=== PATIENT | male | born 1980 | race Hispanic/Latino ===

== ENCOUNTER 2018-12-21 09:25 | Emergency (ER) | payer OTHER ==
--- OUTSIDE RECORDS SUMMARY | 2018-12-21 10:14 | XMS REPORT ---
:1980 [facility] [address] [place] [address] [address]. [address] [place] [address] Care Team Providers Name Role Phone Unavailable Unavailable Unavailable Problems This patient has no known problems. Allergies, Adverse Reactions, Alerts This patient has no known allergies or adverse reactions. Medications This patient has no known medications.
--- NOTE | 2018-12-21 10:40 | ER ---
Nurse's Notes [facility] Name: Andry Carlisle Age: 38 yrs Sex: Male : 1980 Arrival Date: 12/21/2018 Time: 09:27 Bed 15 Private MD: None, None; out of town, doctor Diagnosis: Influenza due to identified novel influenza A virus;Streptococcal pharyngitis Presentation: 12/21 09:42 Presenting complaint: Patient states: fever, cough, runny nose, body aches, mild iw scratchy throat since Wednesday. Transition of care: patient was not received from another setting of care. Onset of symptoms was December 18, 2018. Risk Assessment: Do you want to hurt yourself or someone else? Patient reports no desire to harm self or others. Initial Sepsis Screen: Does the patient meet any 2 criteria? No. Patient's initial sepsis screen is negative. Does the patient have a suspected source of infection? No. Patient's initial sepsis screen is negative. Care prior to arrival: None. 09:42 Method Of Arrival: Ambulatory iw 09:42 Acuity: CAMERON 4 iw Triage Assessment: 10:00 General: Appears in no apparent distress. uncomfortable, Behavior is calm, cooperative, hj appropriate for age. Pain: Complains of pain in throat. Historical: - Allergies: 09:43 No Known Allergies; iw - Home Meds: 09:43 None [Active]; iw - PMHx: 09:43 None; iw - PSHx: 09:43 abdominal aorta repair; iw - Immunization history:: Adult Immunizations not up to date. - Social history:: Smoking status: Patient/guardian denies using tobacco. - Ebola Screening: : Patient negative for fever greater than or equal to 101.5 degrees Fahrenheit, and additional compatible Ebola Virus Disease symptoms Patient denies exposure to infectious person Patient denies travel to an Ebola-affected area in the 21 days before illness onset No symptoms or risks identified at this time. Screenin:00 Abuse screen: Denies threats or abuse. Denies injuries from another. Nutritional hj screening: No deficits noted. Tuberculosis screening: No symptoms or risk factors identified. Fall Risk None identified. Assessment: 10:00 General: Appears in no apparent distress. uncomfortable, Behavior is calm, cooperative, hj appropriate for age. Pain: Complains of pain in throat. Vital Signs: 09:43 BP 133 / 80; Pulse 73; Resp 16; Temp 98.9(TE); Pulse Ox 98% on R/A; Weight 88.45 kg; iw Height 5 ft. 11 in. (180.34 cm); Pain 7; 09:43 Body Mass Index 27.20 (88.45 kg, 180.34 cm) ED Course: :27 Patient arrived in ED. dl4 09:28 None, None is Private Physician. dl4 09:28 out of town, doctor is Private Physician. dl4 09:39 Anthony Villa, RN is Primary Nurse. hj 09:43 Triage completed. iw :43 Arm band placed on. iw 10:00 Patient has correct armband on for positive identification. Bed in low position. Call hj light in reach. Side rails up X 1. Adult w/ patient. 10:04 Angel Luis Barahona NP is PHCP. pm1 10:04 Uche Mckeon MD is Attending Physician. pm1 10:13 Flu and/or RSV swab sent to lab. Strep swab sent to lab. mh5 10:13 Strep Sent. mh5 10:13 Flu Sent. 5 10:26 Ildefonso Dolan MD is Attending Physician. pm1 10:52 No provider procedures requiring assistance completed. Patient did not have IV access hj during this emergency room visit. Administered Medications: No medications were administered Outcome: 10:40 Discharge ordered by . pm1 10:52 Discharged to home ambulatory, with family. hj 10:52 Condition: stable 10:52 Discharge instructions given to patient, family, Instructed on discharge instructions, follow up and referral plans. medication usage, Demonstrated understanding of instructions, follow-up care, medications, Prescriptions given X 2. 10:53 Patient left the ED. hj Signatures: Monae Jordan RN RN Anthony Villa RN RN Angel Luis Barahona NP CLOSING SPECIALIST pm1 Dafne Syed 5 Amado Pemberton dl4
--- NOTE | 2018-12-21 10:40 | EDPHYS ---
Physician Documentation [facility] Name: Andry Carlisle Age: 38 yrs Sex: Male : 1980 Arrival Date: 12/21/2018 Time: 09:27 Bed 15 Private MD: None, None; out of town, doctor ED Physician Ildefonso Dolan HPI: 12/21 10:28 This 38 yrs old Male presents to ER via Ambulatory with complaints of Flu pm1 Symptoms. 10:28 The patient or guardian reports cough, flu symptoms, low-grade fever, myalgias. Onset: pm1 The symptoms/episode began/occurred 3 day(s) ago. Severity of symptoms: in the emergency department the symptoms are unchanged. Modifying factors: The symptoms are alleviated by nothing, the symptoms are aggravated by nothing. Associated signs and symptoms: Pertinent positives: fever, rhinorrhea, sore throat, Pertinent negatives: chest pain, diarrhea, ear ache, vomiting. The patient has not experienced similar symptoms in the past. The patient has not recently seen a physician. Historical: - Allergies: 09:43 No Known Allergies; iw - Home Meds: 09:43 None [Active]; iw - PMHx: 09:43 None; iw - PSHx: 09:43 abdominal aorta repair; iw - Immunization history:: Adult Immunizations not up to date. - Social history:: Smoking status: Patient/guardian denies using tobacco. - Ebola Screening: : Patient negative for fever greater than or equal to 101.5 degrees Fahrenheit, and additional compatible Ebola Virus Disease symptoms Patient denies exposure to infectious person Patient denies travel to an Ebola-affected area in the 21 days before illness onset No symptoms or risks identified at this time. ROS: 10:28 Eyes: Negative for injury, pain, redness, and discharge. pm1 10:28 Neck: Negative for injury, pain, and swelling, Cardiovascular: Negative for chest pain, palpitations, and edema. 10:28 Abdomen/GI: Negative for abdominal pain, nausea, vomiting, diarrhea, and constipation, Back: Negative for injury and pain, : Negative for injury, bleeding, discharge, and swelling, MS/Extremity: Negative for injury and deformity, Skin: Negative for injury, rash, and discoloration, Neuro: Negative for headache, weakness, numbness, tingling, and seizure. 10:28 Constitutional: Positive for body aches, fever, Negative for poor PO intake. 10:28 ENT: Positive for sore throat, Negative for drainage from ear(s), ear pain, difficulty swallowing, difficulty handling secretions, hoarseness. 10:28 Respiratory: Positive for cough, Negative for shortness of breath, sputum production, wheezing. Exam: 10:28 Constitutional: This is a well developed, well nourished patient who is awake, alert, pm1 and in no acute distress. Head/Face: Normocephalic, atraumatic. Eyes: Pupils equal round and reactive to light, extra-ocular motions intact. Lids and lashes normal. Conjunctiva and sclera are non-icteric and not injected. Cornea within normal limits. Periorbital areas with no swelling, redness, or edema. 10:28 ENT: Nares patent. No nasal discharge, no septal abnormalities noted. Tympanic membranes are normal and external auditory canals are clear. Oropharynx with no redness, swelling, or masses, exudates, or evidence of obstruction, uvula midline. Mucous membranes moist. Neck: Trachea midline, no thyromegaly or masses palpated, and no cervical lymphadenopathy. Supple, full range of motion without nuchal rigidity, or vertebral point tenderness. No Meningismus. Chest/axilla: Normal chest wall appearance and motion. Nontender with no deformity. No lesions are appreciated. Cardiovascular: Regular rate and rhythm with a normal S1 and S2. No gallops, murmurs, or rubs. Normal PMI, no JVD. No pulse deficits. Respiratory: Lungs have equal breath sounds bilaterally, clear to auscultation and percussion. No rales, rhonchi or wheezes noted. No increased work of breathing, no retractions or nasal flaring. Abdomen/GI: Soft, non-tender, with normal bowel sounds. No distension or tympany. No guarding or rebound. No evidence of tenderness throughout. Back: No spinal tenderness. No costovertebral tenderness. Full range of motion. Skin: Warm, dry with normal turgor. Normal color with no rashes, no lesions, and no evidence of cellulitis. MS/ Extremity: Pulses equal, no cyanosis. Neurovascular intact. Full, normal range of motion. 10:28 Neuro: Orientation: is normal, Motor: is normal, Sensation: is normal, no obvious gross deficits. Vital Signs: 09:43 BP 133 / 80; Pulse 73; Resp 16; Temp 98.9(TE); Pulse Ox 98% on R/A; Weight 88.45 kg; iw Height 5 ft. 11 in. (180.34 cm); Pain 7/10; 09:43 Body Mass Index 27.20 (88.45 kg, 180.34 cm) iw MDM: 10:14 Patient medically screened. pm1 10:29 Data reviewed: vital signs. Data interpreted: Pulse oximetry: on room air is 98 %. pm1 Interpretation: normal. 10:38 Counseling: I had a detailed discussion with the patient and/or guardian regarding: the pm1 historical points, exam findings, and any diagnostic results supporting the discharge/admit diagnosis, lab results, the need for outpatient follow up, to return to the emergency department if symptoms worsen or persist or if there are any questions or concerns that arise at home. 12/21 10:05 Order name: Flu; Complete Time: 10:38 pm1 12/21 10:05 Order name: Strep; Complete Time: 10:38 pm1 Administered Medications: No medications were administered Disposition: 11:05 Co-signature as Attending Physician, Ildefonso Dolan MD I agree with the assessment and kdr plan of care. Disposition: 12/21/18 10:40 Discharged to Home. Impression: Influenza due to identified novel influenza A virus, Streptococcal pharyngitis. - Condition is Stable. - Discharge Instructions: Influenza, Adult, Strep Throat. - Prescriptions for Amoxicillin 500 mg Oral Capsule - take 1 capsule by ORAL route every 8 hours for 10 days; 30 tablet. Tamiflu 75 mg Oral Capsule - take 1 tablet by ORAL route every 12 hours for 5 days; 10 tablet. - Medication Reconciliation Form, Thank You Letter, Antibiotic Education form. - Follow up: Emergency Department; When: As needed; Reason: Worsening of condition. Follow up: Private Physician; When: 2 - 3 days; Reason: Recheck today's complaints, Continuance of care, Re-evaluation by your physician. - Problem is new. - Symptoms have improved. Signatures: Dispatcher [employer] EDIldefonso Alcocer MD MD [facility] Monae Jordan RN RN Anthony Villa RN RN Marinas, Angel Luis, WILDERNESS GUIDE WILDERNESS GUIDE pm1 Corrections: (The following items were deleted from the chart) 10:53 10:40 12/21/2018 10:40 Discharged to Home. Impression: Influenza due to identified hj novel influenza A virus; Streptococcal pharyngitis. Condition is Stable. Forms are Medication Reconciliation Form, Thank You Letter, Antibiotic Education, Prescription Opioid Use. Follow up: Emergency Department; When: As needed; Reason: Worsening of condition. Follow up: Private Physician; When: 2 - 3 days; Reason: Recheck today's complaints, Continuance of care, Re-evaluation by your physician. Problem is new. Symptoms have improved. pm1
== END 2018-12-21 10:53 | disposition home or self-care (01) ==
LOC: ER 09:25
DX: J10.1 Influenza due to other identified influenza virus with other respiratory manifestations (principal); J02.0 Streptococcal pharyngitis
CPT/HCPCS: 87081; 87804; 99283

== ENCOUNTER 2019-06-11 22:04 | Inpatient (IN) | payer OTHER ==
[2019-06-11] MEDS ORDERED: MORPHINE 4 MG/ML SYR ONE (22:52)
[2019-06-11] MEDS ORDERED: ONDANSETRON 4 MG/2 ML VIAL ONE (22:52)
[2019-06-11] MEDS ORDERED: NA CHLORIDE 0.9% 1,000 ML ONE (22:52)
[2019-06-11 23:07] LABS: Basophils % 0.5 % (0-1.3); Hematocrit 45.5 % (39.6-49.0); Lymphocytes % 10.1 % (15.3-44.8); MPV 10.4 fL (7.6-11.3); RBC Red Blood Cell Count 5.27 M/uL (4.33-5.43)
[2019-06-11 23:17] LABS: Urine Blood NEGATIVE (NEG); Urine Glucose NEGATIVE (NEG); Urine Protein NEGATIVE (NEG)
[2019-06-11] MEDS ORDERED: PROMETHAZINE 25 MG/ML VIAL ONE (23:43)
[2019-06-12] MEDS ORDERED: MORPHINE 4 MG/ML SYR ONE (00:02)
[2019-06-12 00:51] LABS: Albumin 4.2 g/dL (3.4-5.0); Bilirubin Direct 0.2 mg/dL (0-0.2); Bilirubin Total 1.1 mg/dL (0.2-1.0); Potassium 3.8 mmol/L (3.5-5.1); Protein, Total 7.1 g/dL (6.4-8.2)
--- NOTE | 2019-06-12 01:27 | EDPHYS ---
Physician Documentation [facility] Name: Andry Carlisle Age: 39 yrs Sex: Male : 1980 Arrival Date: 06/11/2019 Time: 22:06 Bed 19 Private MD: ED Physician Jaciel Rodriguez HPI: 06/11 22:36 This 39 yrs old Male presents to ER via Ambulatory with complaints of pm1 Abdominal Pain. 22:36 The patient presents with abdominal pain right lower quadrant. Onset: The pm1 symptoms/episode began/occurred this morning. The symptoms do not radiate. Associated signs and symptoms: Pertinent positives: nausea, Pertinent negatives: chest pain, constipation, diarrhea, dysuria, fever, shortness of breath. The symptoms are described as waxing/waning. Modifying factors: The symptoms are alleviated by nothing, the symptoms are aggravated by nothing. Severity of pain: in the emergency department the pain is actually worse. The patient has not experienced similar symptoms in the past. The patient has not recently seen a physician, the patient's primary care provider is Dr. Armenta. Historical: - Allergies: 22:22 No Known Allergies; ea - Home Meds: 22:22 None [Active]; ea - PMHx: 22:22 fatty liver; ea - PSHx: 22:22 abdominal aorta repair; Cholecystectomy; ea - Immunization history:: Adult Immunizations up to date. - Social history:: Smoking status: Patient/guardian denies using tobacco. - Ebola Screening: : No symptoms or risks identified at this time. ROS: 22:36 Constitutional: Negative for fever, chills, and weight loss, Eyes: Negative for injury, pm1 pain, redness, and discharge, ENT: Negative for injury, pain, and discharge, Neck: Negative for injury, pain, and swelling, Cardiovascular: Negative for chest pain, palpitations, and edema, Respiratory: Negative for shortness of breath, cough, wheezing, and pleuritic chest pain, Back: Negative for injury and pain, MS/Extremity: Negative for injury and deformity, Skin: Negative for injury, rash, and discoloration, Neuro: Negative for headache, weakness, numbness, tingling, and seizure. 22:36 Abdomen/GI: Positive for abdominal pain, nausea, of the right lower quadrant, Negative for vomiting, diarrhea. Exam: 22:36 Constitutional: This is a well developed, well nourished patient who is awake, alert, pm1 and in no acute distress. Head/Face: Normocephalic, atraumatic. Eyes: Pupils equal round and reactive to light, extra-ocular motions intact. Lids and lashes normal. Conjunctiva and sclera are non-icteric and not injected. Cornea within normal limits. Periorbital areas with no swelling, redness, or edema. ENT: Nares patent. No nasal discharge, no septal abnormalities noted. Tympanic membranes are normal and external auditory canals are clear. Oropharynx with no redness, swelling, or masses, exudates, or evidence of obstruction, uvula midline. Mucous membranes moist. Neck: Trachea midline, no thyromegaly or masses palpated, and no cervical lymphadenopathy. Supple, full range of motion without nuchal rigidity, or vertebral point tenderness. No Meningismus. Chest/axilla: Normal chest wall appearance and motion. Nontender with no deformity. No lesions are appreciated. Cardiovascular: Regular rate and rhythm with a normal S1 and S2. No gallops, murmurs, or rubs. Normal PMI, no JVD. No pulse deficits. Respiratory: Lungs have equal breath sounds bilaterally, clear to auscultation and percussion. No rales, rhonchi or wheezes noted. No increased work of breathing, no retractions or nasal flaring. 22:36 Back: No spinal tenderness. No costovertebral tenderness. Full range of motion. Skin: Warm, dry with normal turgor. Normal color with no rashes, no lesions, and no evidence of cellulitis. MS/ Extremity: Pulses equal, no cyanosis. Neurovascular intact. Full, normal range of motion. 22:36 Abdomen/GI: Inspection: abdomen appears normal, Bowel sounds: normal, Palpation: soft, mild abdominal tenderness, in the right lower quadrant, mass, is not appreciated, rebound tenderness, is not appreciated. 22:36 Neuro: Orientation: is normal, Motor: is normal, moves all fours, Sensation: is normal, no obvious gross deficits. Vital Signs: 22:22 BP 139 / 94; Pulse 59; Resp 18; Temp 98.6; Pulse Ox 97% on R/A; Weight 81.65 kg; Height ea 5 ft. 10 in. (177.80 cm); Pain 7/10; 23:30 BP 149 / 80; Pulse 82; Resp 18; Pulse Ox 97% on R/A; lp1 06/12 00:30 BP 150 / 86; Pulse 78; Resp 18; Pulse Ox 95% on R/A; lp1 02:06 BP 142 / 81; Pulse 62; Resp 18; Pulse Ox 98% on R/A; lp1 02:55 BP 147 / 84; Pulse 70; Resp 16; Temp 98.1(O); Pulse Ox 97% on R/A; jb4 06/11 22:22 Body Mass Index 25.83 (81.65 kg, 177.80 cm) ea MDM: 06/11 22:26 Patient medically screened. pm1 06/12 01:19 Data reviewed: vital signs. Data interpreted: Pulse oximetry: on room air is 95 %. pm1 Interpretation: normal. Counseling: I had a detailed discussion with the patient and/or guardian regarding: the historical points, exam findings, and any diagnostic results supporting the discharge/admit diagnosis, lab results, radiology results, the need for further work-up and treatment in the hospital. 01:35 Physician consultation: Anthony Syed MD was called at 01:35, was contacted at 01:35, pm1 regarding admission, consult, patient's condition, would like admission per Dr. Jacob Messina DO NPO, IV fluids. 06/11 22:26 Order name: Basic Metabolic Panel; Complete Time: 00:52 pm06/11 22:26 Order name: CBC with Diff; Complete Time: 23:35 pm06/11 22:26 Order name: Creatinine for Radiology pm06/11 22:26 Order name: Hepatic Function; Complete Time: 00:52 pm06/11 22:26 Order name: Lipase; Complete Time: 00:52 pm06/11 23:03 Order name: Urine Dipstick--Ancillary (enter results); Complete Time: 23:35 2 06/11 22:26 Order name: IV Saline Lock; Complete Time: 23:03 pm06/11 22:37 Order name: CT Abd/Pelvis - IV Contrast Only pm1 06/11 22:26 Order name: Labs collected and sent; Complete Time: 23:03 pm06/11 22:37 Order name: NPO; Complete Time: 22:50 pm1 06/11 22:37 Order name: Urine Dipstick-Ancillary (obtain specimen); Complete Time: 23:03 pm1 Administered Medications: 06/11 23:02 Drug: morphine 4 mg Route: IVP; Site: right antecubital; lp1 23:48 Follow up: Response: Pain is unchanged, physician notified lp1 23:02 Drug: Zofran 4 mg Route: IVP; Site: right antecubital; lp1 23:47 Follow up: Response: No adverse reaction; Nausea unchanged lp1 23:02 Drug: NS 0.9% 1000 ml Route: IV; Rate: 1000 ml; Site: right antecubital; lp1 06/12 00:10 Follow up: IV Status: Completed infusion; IV Intake: 1000ml lp06/11 23:47 Drug: Phenergan 12.5 mg Route: IVP; Site: right antecubital; lp1 06/12 01:15 Follow up: Response: Nausea is decreased lp1 00:10 Drug: morphine 4 mg {Note: RASS 0.} Route: IVP; Site: right antecubital; lp1 01:15 Follow up: Response: Pain is decreased; RASS: Alert and Calm (0) lp1 01:45 Drug: NS 0.9% 1000 ml Route: IV; Rate: 125 ml/hr; Site: right antecubital; 1 03:03 Follow up: IV Status: Infusion continued upon admission lp1 Disposition: 03:27 Co-signature as Attending Physician, Jaciel Rodriguez MD. pk Disposition: 06/12/19 01:25 Hospitalization ordered by Jacob Messina for Inpatient Admission. Preliminary diagnosis is Other intestinal obstruction - small bowel obstruction. - Bed requested for Telemetry/MedSurg (Inpatient). - Status is Inpatient Admission. wh - Condition is Stable. - Problem is new. - Symptoms have improved. UTI on Admission? No Signatures: Dispatcher [employer] EDMS Jaciel Rodriguez MD MD pk Jannie Pate RN RN lp1 Diane Funk RN RN Angel Luis Barahona, SUPERVISOR HAND SILVERING SUPERVISOR HAND SILVERING pm1 Tisha Lopez RN RN ea Habalo, Winsy Corrections: (The following items were deleted from the chart) 02:53 01:25 Hospitalization Ordered by Jacob eMssina DO for Inpatient Admission. Preliminary cg diagnosis is Other intestinal obstruction - small bowel obstruction. Bed requested for Telemetry/MedSurg (Inpatient). Status is Inpatient Admission. Condition is Stable. Problem is new. Symptoms have improved. UTI on Admission? No. pm1 03:27 02:53 06/12/2019 01:25 Hospitalization Ordered by Jacob Messina DO for Inpatient Admission. Preliminary diagnosis is Other intestinal obstruction - small bowel obstruction. Bed requested for Telemetry/MedSurg (Inpatient). Status is Inpatient Admission. Condition is Stable. Problem is new. Symptoms have improved. UTI on Admission? No. cg
--- NOTE | 2019-06-12 01:27 | ER ---
Nurse's Notes [facility] Name: Andry Carlisle Age: 39 yrs Sex: Male : 1980 Arrival Date: 06/11/2019 Time: 22:06 Bed 19 Private MD: Diagnosis: Other intestinal obstruction-small bowel obstruction Presentation: 06/11 22:18 Presenting complaint: Patient states: Reports this AM he started having right lower ea quadrant pain that comes and goes. Pt reports he has been feeling nauseous. Denies vomiting or diarrhea. States he was only able to eat breakfast this AM. Transition of care: patient was not received from another setting of care. Onset of symptoms was June 11, 2019. Risk Assessment: Do you want to hurt yourself or someone else? Patient reports no desire to harm self or others. Initial Sepsis Screen: Does the patient meet any 2 criteria? No. Patient's initial sepsis screen is negative. Does the patient have a suspected source of infection? No. Patient's initial sepsis screen is negative. Care prior to arrival: None. 22:18 Method Of Arrival: Ambulatory ea 22:18 Acuity: CAMERON 3 ea Triage Assessment: 22:22 General: Appears uncomfortable, Behavior is calm, cooperative, appropriate for age. ea Pain: Complains of pain in right lower quadrant Pain does not radiate. Pain currently is 7 out of 10 on a pain scale. Is intermittent. Neuro: Level of Consciousness is awake, alert, obeys commands, Oriented to person, place, time, situation. Respiratory: Airway is patent Respiratory effort is even, unlabored, Respiratory pattern is regular, symmetrical. GI: Abdomen is non-distended, Abd is soft and non tender X 4 quads. Reports nausea. Historical: - Allergies: 22:22 No Known Allergies; ea - Home Meds: 22:22 None [Active]; ea - PMHx: 22:22 fatty liver; ea - PSHx: 22:22 abdominal aorta repair; Cholecystectomy; ea - Immunization history:: Adult Immunizations up to date. - Social history:: Smoking status: Patient/guardian denies using tobacco. - Ebola Screening: : No symptoms or risks identified at this time. Screenin:21 Abuse screen: Denies threats or abuse. Nutritional screening: No deficits noted. ea Tuberculosis screening: No symptoms or risk factors identified. Fall Risk None identified. Assessment: 22:30 General: Appears in no apparent distress. Behavior is appropriate for age. Pain: lp1 Complains of pain in right lower quadrant Pain currently is 6 out of 10 on a pain scale. Neuro: Level of Consciousness is awake, alert, obeys commands, Oriented to person, place, time, situation. Cardiovascular: Patient's skin is warm and dry. Respiratory: Respiratory effort is even, unlabored. GI: Abdomen is non-distended, Bowel sounds present X 4 quads. Reports lower abdominal pain, Patient currently denies nausea, vomiting. : No signs and/or symptoms were reported regarding the genitourinary system. EENT: No signs and/or symptoms were reported regarding the EENT system. Derm: Skin is pink, warm \T\ dry. Musculoskeletal: No deficits noted. 23:30 Reassessment: Provider notified. GI: Pt is actively vomiting brown liquid, undigested lp1 food, about 700 ml. 06/12 00:00 Reassessment: Patient noted to be in pain. Pain: Complains of pain in right lower lp1 quadrant Noted to be grimacing, guarding, quiet/stoic. 00:30 Reassessment: Patient and/or family updated on plan of care and expected duration. Pain lp1 level reassessed. Patient states some relief of nausea and pain at this time. 01:02 Reassessment: Patient returned from CT at time. lp1 02:05 Reassessment: Patient and/or family updated on plan of care and expected duration. Pain lp1 level reassessed. Patient aware of pending admission, at bedside Patient states feeling better. 02:20 Reassessment: Hospitalist at bedside to discuss plan of care with patient and . lp1 03:26 Reassessment: Patient appears in no apparent distress at this time. Patient and/or wh family updated on plan of care and expected duration. Pain level reassessed. Patient is alert, oriented x 3, equal unlabored respirations, skin warm/dry/pink. Patient states feeling better. Vital Signs: 06/11 22:22 BP 139 / 94; Pulse 59; Resp 18; Temp 98.6; Pulse Ox 97% on R/A; Weight 81.65 kg; Height ea 5 ft. 10 in. (177.80 cm); Pain 7/10; 23:30 BP 149 / 80; Pulse 82; Resp 18; Pulse Ox 97% on R/A; lp1 06/12 00:30 BP 150 / 86; Pulse 78; Resp 18; Pulse Ox 95% on R/A; lp1 02:06 BP 142 / 81; Pulse 62; Resp 18; Pulse Ox 98% on R/A; lp1 02:55 BP 147 / 84; Pulse 70; Resp 16; Temp 98.1(O); Pulse Ox 97% on R/A; jb4 06/11 22:22 Body Mass Index 25.83 (81.65 kg, 177.80 cm) ea ED Course: 06/11 22:06 Patient arrived in ED. es 22:20 Triage completed. ea 22:20 Patient has correct armband on for positive identification. Bed in low position. Call ea light in reach. Side rails up X2. 22:20 Arm band placed on right wrist. Patient placed in an exam room, on a stretcher, on ea pulse oximetry. 22:24 Jannie Pate, NEIL is Primary Nurse. lp1 22:25 Angel Luis Barahona NP is PHCP. pm1 22:25 Jaciel Rodriguez MD is Attending Physician. pm1 23:06 No provider procedures requiring assistance completed. lp1 23:31 Initial lab(s) drawn, by me, sent to lab. Inserted saline lock: 20 gauge in right cm6 antecubital area, using aseptic technique. 06/12 00:05 Lab(s) recollected, by me, sent to lab. lp1 00:12 Radiology exam delayed due to lab results not completed at this time. (BUN/Creatinine). kw1 00:29 Radiology exam delayed due to lab results not completed at this time. (BUN/Creatinine). kw1 01:05 CT Abd/Pelvis - IV Contrast Only In Process Unspecified. EDMS 01:25 Jacob Messina DO is Hospitalizing Provider. pm1 01:28 Patient admitted, IV remains in place. lp1 Administered Medications: 06/11 23:02 Drug: morphine 4 mg Route: IVP; Site: right antecubital; lp1 23:48 Follow up: Response: Pain is unchanged, physician notified lp1 23:02 Drug: Zofran 4 mg Route: IVP; Site: right antecubital; lp1 23:47 Follow up: Response: No adverse reaction; Nausea unchanged lp1 23:02 Drug: NS 0.9% 1000 ml Route: IV; Rate: 1000 ml; Site: right antecubital; lp1 06/12 00:10 Follow up: IV Status: Completed infusion; IV Intake: 1000ml lp1 06/11 23:47 Drug: Phenergan 12.5 mg Route: IVP; Site: right antecubital; lp1 06/12 01:15 Follow up: Response: Nausea is decreased lp1 00:10 Drug: morphine 4 mg {Note: RASS 0.} Route: IVP; Site: right antecubital; lp1 01:15 Follow up: Response: Pain is decreased; RASS: Alert and Calm (0) lp1 01:45 Drug: NS 0.9% 1000 ml Route: IV; Rate: 125 ml/hr; Site: right antecubital; 1 03:03 Follow up: IV Status: Infusion continued upon admission lp1 Intake: 00:10 IV: 1000ml; Total: 1000ml. [facility] Outcome: 01:25 Decision to Hospitalize by Provider. pm1 01:28 Condition: stable lp1 01:28 Instructed on the need for admit. 03:02 Admitted to Med/surg accompanied by nurse, family with patient, via wheelchair, room lp1 206, with chart, Report called to NEIL Giles 03:27 Patient left the ED. Signatures: Dispatcher [employer] EDMaría Elena Rosario Laura, RN RN lp1 Angel Luis Barahona, CAMERON VICE PRESIDENT EDUCATION pm1 Macario Bolton RN RN jb4 Tisha Lopez RN RN ea [place], Winsy wh Wilhelm, Kimberly [facility] Darling Crowe 6
[2019-06-12] MEDS ORDERED: NA CHLORIDE 0.9% 1,000 ML ONE (01:42)
--- NOTE | 2019-06-12 02:29 | P.HP ---
Certification for Inpatient Patient admitted to: Inpatient With expected LOS: >2 Midnights Patient will require the following post-hospital care: None Practitioner: I am a practitioner with admitting privileges, knowledge of patient current condition, hospital course, and medical plan of care. Services: Services provided to patient in accordance with Admission requirements found in Title 42 Section 412.3 of the Code of Federal Regulations Patient History Date of Service: 06/12/19 Reason for admission: Abdominal pain History of Present Illness: 39-year-old man presented to the emergency department with a complaint of abdominal pain of onset yesterday evening. Pain is described as colicky and intermittent, associated with vomiting. Patient vomited twice. He stated last bowel movement was yesterday in the evening. He denied any fever or diarrhea or constipation. CT abdomen and pelvis done in the ED reports high-grade small-bowel obstruction with transition point at the level of the aortic bifurcation. Of note, patient is status post aortic repair and cholecystectomy. He had no pain during my assessment in the ED and has not vomited since arrival to the ED. Patient is admitted for further management of small bowel obstruction. Allergies No Known Drug Allergies Allergy (Verified 06/12/19 04:23) Unknown Home Medications: NK [No Home Meds] 06/12/19 - Past Medical/Surgical History Past Medical History: Patient denies medical history -: Cholecystectomy -: Abdominal aorta repair - Family History Mother -: Cancer (Breast) Father Notes: no known medical condition - Social History Smoking Status: Never smoker Alcohol use: No CD- Drugs: No Place of Residence: Home Review of Systems Other: General: No fever, no malaise, no unintentional weight loss. Eyes: No eye discharge, Respiratory: No cough, no shortness of breath. CVS: No chest pain, no palpitation, no lightheadedness. GI: No constipation, no diarrhea. Genitourinary: No dysuria, no urinary frequency, no incontinence, no hematuria. Musculoskeletal: No joint pains, or joint swelling, no gait instability. Neurology: No headache, no asymmetric weakness, no problem with swallowing. Except as documented, all other systems reviewed and negative. Physical Examination - Physical Exam General: Alert, In no apparent distress, Oriented x3 HEENT: Atraumatic, Normocephalic, PERRLA, Mucous membr. moist/pink Neck: Supple, 2+ carotid pulse no bruit, JVD not distended Respiratory: Clear to auscultation bilaterally, Normal air movement Cardiovascular: No edema, Normal pulses, Regular rate/rhythm, Normal S1 S2, No murmurs Capillary refill: <2 Seconds Gastrointestinal: Soft and benign, Non-distended, No tenderness, Hyperactive Musculoskeletal: No clubbing, No swelling, No erythema Integumentary: No rashes, No breakdown, No erythema Neurological: Normal strength at 5/5 x4 extr, Cranial nerves 3-12 intact, Normal affect Lymphatics: No axilla or inguinal lymphadenopathy - Studies Laboratory Data (last 24 hrs) 06/12/19 00:05: Creatinine 1.04 06/12/19 00:05: Sodium 141, Potassium 3.8, BUN 15, Creatinine 1.05, Glucose 132 H, Total Bilirubin 1.1 H, AST 51 H, ALT 36, Alkaline Phosphatase 90, Lipase 65 L 06/11/19 22:53: WBC 10.3, Hgb 15.0, Hct 45.5, Plt Count 215 Assessment and Plan - Problems (Diagnosis) (1) Small bowel obstruction due to adhesions Current Visit: Yes Status: Acute - Plan Admit to med surge Supportive measures-IV normal saline, IV morphine p.r.n. for pain. NG-tube as needed for decompression Optimize electrolytes General surgery consult- Dr. Syed informed. - Advance Directives Does patient have a Living Will: No Does patient have a Durable POA for Healthcare: No - Code Status/Comfort Care Code Status: Full Code
[2019-06-12] MEDS ORDERED: ONDANSETRON 4 MG/2 ML VIAL IV PRN (02:44)
[2019-06-12] MEDS ORDERED: MORPHINE 2 MG/ML SYR IV PRN (02:48)
[2019-06-12] MEDS: NA CHLORIDE 0.9% 1,000 ML IV SCH ×3 (03:00→23:55)
[2019-06-12 04:55] LABS: Urine Appearance CLEAR; Urine Bilirubin NEGATIVE (NEG); Urine Blood NEGATIVE (NEG); Urine Color YELLOW; Urine Glucose NEGATIVE (NEG); Urine Protein NEGATIVE (NEG); Urine Specific Gravity >=1.030 (1.005-1.030)
[2019-06-12 04:56] LABS: Urine Microscopic Reflex NO UMIC
--- NOTE | 2019-06-12 09:24 | RAD REPORT ---
EXAM DESCRIPTION: Abdomen Pelvis W Contrast CLINICAL HISTORY: 39 years Male RLQ PAIN TECHNIQUE: Contiguous axial images obtained through the abdomen and pelvis following intravenous con trast administration. Coronal and sagittal reformatted images provided. This CT exam was performed according to our departmental dose-optimization program, which includes on e or more of the following dose reduction techniques: automated exposure control, adjustment of the m A and/or kV according to patient size, and/or use of iterative reconstruction technique. COMPARISON: No prior exams provided for comparison. FINDINGS: There is a high-grade mid small bowel obstruction with a likely transition point anterior to the aortic bifurcation, where there are some surgical clips. There is no pneumatosis, free intrape ritoneal air, or abscess. There is trace free fluid in the pelvis. The appendix is not identified and may be surgically absent. No inflammatory changes in its expected location. No colonic inflammation or obstruction. Prior cholecystectomy likely accounts for mild biliary prominence. Subcentimeter focus of low attenuation in the dome of the liver nonspecific but likely benign. The lung bases, pancreas, spleen, adrenal glands, kidneys, urinary bladder, and osseous structures ar e normal. There is no abdominal aortic aneurysm or acute retroperitoneal hemorrhage. IMPRESSION: High-grade mid small bowel obstruction with a likely transition point anterior to the ao rtic bifurcation, where there are some surgical clips. No evidence of bowel ischemia or perforation. No other acute findings in the abdomen or pelvis. THIS REPORT CONTAINS FINDINGS THAT MAY BE CRITICAL TO PATIENT CARE: The findings were verbally discu ssed via telephone conference with Dr. Barahona by Dr. Fallon Gibson on 06/12/2019 1:18 AM CDT .The resul ts were acknowledged and understood. Electronically signed by: Fallon Gibson MD 06/12/2019 1:20 AM CDT Due to temporary technical issues with the PACS/Fluency reporting system, reports are being signed by the in house radiologist as a courtesy to ensure prompt reporting. The interpreting radiologist is f ully responsible for the content of the report.
--- NOTE | 2019-06-12 11:50 | PN ---
Date of Progress Note: 06/12/2019 Subjective: Patient seen and examined. Chart reviewed and case discussed with RN and Dr. Syed. Patient is still having some pain. Has not thrown up since last night. Medications: List reviewed. Physical Examination: Vital Signs: Temperature 97.3, heart rate 54, blood pressure 117/69, respirations 16, O2 98% on room air. General: Awake, alert, oriented x3. Some mild distress. CV: S1, S2. No murmurs. Respiratory: Moving air well bilaterally. No wheezing. Gastrointestinal: Abdomen is soft, mildly distended. No bowel sounds. Tenderness to palpation. Extremities: No clubbing, cyanosis, or edema. Neurologic: Nonfocal. Laboratory Data: Creatinine 1.04. WBC 10.3, H and H 15 and 45.5. Assessment And Plan: A 39-year-old male with: 1.Small bowel obstruction due to adhesions. 2.Status post abdominal aortic repair. 3.Hyperglycemia, likely acute phase reactant. 4.Neutrophilia. 5.Deep venous thrombosis prophylaxis. SCDs. Plan: Serial abdominal x-rays. Follow up with Dr. Syed's recommendations. Conservative treatme nt for now. If fails treatment in next 48 hours, we will consider surgery. Keep n.p.o. Continue with IV fluids. Adjust pain medications as necessary. Encourage ambulation. /DON Voice ID: [id number] Report ID: [id number]
--- NOTE | 2019-06-12 17:05 | CON ---
Date of Consultation: 06/12/2019 Diagnosis: Small bowel obstruction. History Of Present Illness: This is the case of a 39-year-old patient, comes to us with bowel obstru ction. Etiology of that is unknown. He was eating before that some mushrooms. He stated complicate d abdominal surgery in 2017, where he was going for gallbladder surgery, but they end up having a com plication with the aorta that required midline incision to repair. Since then, he has been having no rmal life until he has this issue. He denies any dysuria, hematuria, hematochezia, or melena. Denie s any recent traveling out of the country. Denies any family members sick at home. Past Surgical History: As above including emergent laparotomy, repair of the aorta, although we do n ot have the details of that. Has a complication from my [facility]. Allergies: NONE. Social History: He does not smoke and does not drink alcohol. Medications: None. Family History: Noncontributory. Review of Systems: Ten-points otherwise unremarkable. Physical Examination: General: Patient is awake and alert. HEENT: Pupils are equal and reactive, anicteric. Neck: Supple. Chest: Clear. Abdomen: Soft and depressible. Mild tenderness. No guarding or rebound. Rectal: Deferred. Extremities: Good capillary refill. Laboratory Data: Blood work shows WBC count 10.3, with hemoglobin of 15.0. CAT scan of abdomen and pelvis shows small bowel obstruction. Assessment: This is a 39-year-old patient with small bowel obstruction. Patient has a previous comp licated surgeries. We suspect adhesions might be contributing to this. Today, he feels better. He is starting to move. He has not passed any gas yet or any bowel movement. He understands the option s of laparotomy, possible resection, possible ostomy with benefits, alternatives, and risks fully exp lained include but not limited to infection, bleeding, damage to adjacent structures, anesthesia comp lication, OK, and even . Obviously, he feels better. He wanted to treat this conservatively fo r the next 24 to 48 hours. If he does not open, then he will consider the laparotomy. We are going to keep the patient n.p.o. until he passed some gas and then we will proceed to either diet or small bowel series. If he develops any peritonitis before that, he understands the importance of signing f or a consent. JUAN/DON Voice ID: [id number] Report ID: [id number]
[2019-06-13 06:12] LABS: Absolute Lymphocytes (CBC) 1.1 K/uL (0.7-4.9); Basophils % 0.7 % (0-1.3); Hematocrit 40.6 % (39.6-49.0); Lymphocytes % 28.1 % (15.3-44.8); MPV 9.9 fL (7.6-11.3); RBC Red Blood Cell Count 4.68 M/uL (4.33-5.43)
[2019-06-13 06:25] LABS: BUN Blood Urea Nitrogen 12 mg/dL (7-18); Bicarbonate 29 mmol/L (21-32); Glucose Level 82 mg/dL (74-106); Magnesium 2.2 mg/dL (1.8-2.4); Sodium Level 143 mmol/L (136-145)
--- NOTE | 2019-06-13 07:19 | RAD REPORT ---
EXAM DESCRIPTION: RAD - Abdomen Acute Series - 06/13/2019 6:43 am CLINICAL HISTORY: SBO COMPARISON: Chest Pa And Lat (2 Views) dated 05/20/2017; Abdomen Pelvis W Contrast dated 06/12/2019 FINDINGS: Lungs are clear. Heart size and pulmonary vasculature are normal. No pleural effusion, pne umothorax or other acute cardiopulmonary process seen. Air and stool are present in nondilated colon. Stomach is decompressed. Limited small bowel gas noted . No progressive small bowel dilatation. Overall pattern is believed to be improved. No free air or p neumatosis. Cholecystectomy clips again noted. No suspicious calcifications. IMPRESSION: No acute chest finding. No free air or pneumatosis. Small bowel dilatation pattern appears improved slightly.
--- NOTE | 2019-06-13 13:27 | P.PN ---
Subjective Date of Service: 06/13/19 Chief Complaint: Abdominal pain Subjective: Improving Patient seen and examined at bedside. at bedside. Chart reviewed and case discussed with Dr. Syed Reports improved abdominal pain; Passing gas, Reports one soft bowel movement this morning. Denies any nausea or vomiting this am. Review of Systems 10-point ROS is otherwise unremarkable Physical Examination - Vital Signs Temperature: 97.8 F Blood Pressure: 120/66 Pulse: 60 Respirations: 16 Pulse Ox (%): 99 - Physical Exam General: Alert, In no apparent distress, Oriented x3 HEENT: Atraumatic, PERRLA, EOMI Neck: Supple, JVD not distended Respiratory: Clear to auscultation bilaterally, Normal air movement Cardiovascular: Regular rate/rhythm, Normal S1 S2 Gastrointestinal: Normal bowel sounds, No tenderness Musculoskeletal: No tenderness Integumentary: No rashes Neurological: Normal speech, Normal tone, Normal affect Lymphatics: No axilla or inguinal lymphadenopathy Assessment And Plan - Plan A 39-year-old male with: 1.Small bowel obstruction due to adhesions. 2.Status post abdominal aortic repair. 3.Hyperglycemia, likely acute phase reactant. 4.Neutrophilia. 5.Deep venous thrombosis prophylaxis. SCDs. Plan: -Repeat AXR with mild improvement, no free air -Appreciate Dr. Syed's recommendations. -Continue conservative treatment for now. -Start CLD -Continue with IV fluids. -Adjust pain medications as necessary. -Encourage ambulation.
[2019-06-13] MEDS: NA CHLORIDE 0.9% 1,000 ML IV SCH ×2 (14:55→19:00)
[2019-06-14] MEDS: NA CHLORIDE 0.9% 1,000 ML IV SCH (01:15)
--- NOTE | 2019-06-14 07:58 | P.PN ---
Subjective Date of Service: 06/13/19 Chief Complaint: Abdominal pain, SBO Subjective: Ambulating, Improving (Passing flatus) Review of Systems 10-point ROS is otherwise unremarkable Gastrointestinal: Nausea (no), Vomiting (no), Abdominal Pain (better), Diarrhea (no), No Distention, Melena (no), Hematochezia (no), As per HPI Physical Examination - Vital Signs Temperature: 97.2 F Blood Pressure: 130/73 Pulse: 54 Respirations: 18 Pulse Ox (%): 95 - Physical Exam General: Alert, In no apparent distress, Oriented x3, Cooperative HEENT: PERRLA, EOMI Neck: Supple Cardiovascular: No edema Gastrointestinal: Soft and benign, No rebound, No guarding Musculoskeletal: No erythema, No tenderness, No warmth Integumentary: No rashes, No breakdown - Studies Imagings Data: xray showing improvement discussed with patient Assessment And Plan - Plan OOb full liquid diet advance as tolerated if diet tolerated then d/h and f/u with me and gastroenterologyst
--- NOTE | 2019-06-14 13:15 | P.DS ---
Admission Date: 06/12/19 Discharge Date: 06/14/19 Disposition: ROUTINE DISCHARGE Discharge Condition: GOOD Reason for Admission: Abdominal pain, SBO Consultations: General Surgery Brief History of Present Illness: Discharge diagnosis: 1.Small bowel obstruction due to adhesions. 2.Status post abdominal aortic repair. 3.Hyperglycemia, likely acute phase reactant. 4.Neutrophilia. 39-year-old man presented to the emergency department with a complaint of abdominal pain of onset yesterday evening. Pain is described as colicky and intermittent, associated with vomiting. Patient vomited twice. He stated last bowel movement was yesterday in the evening. He denied any fever or diarrhea or constipation. CT abdomen and pelvis done in the ED reports high-grade small-bowel obstruction with transition point at the level of the aortic bifurcation. Of note, patient is status post aortic repair and cholecystectomy. He had no pain during my assessment in the ED and has not vomited since arrival to the ED. Patient is admitted for further management of small bowel obstruction. Hospital Course: A 39-year-old male with Small bowel obstruction due to adhesions. Dr. Syed ( Gen Surg) was consulted. Patient was kept NPO, proved with IVF and supportive care. His symptoms improved with conservative management. He did not require any surgical intervention. He was slowly started on CLD, he tolerated that well. His diet was advanced to GI soft. Prior to discharge, he was tolerating a GI soft diet without worsening pain, nausea or vomiting. He was ambulating, AAOx3, in no acute distress and symptom free. He was cleared for discharge by general surgery. He remained otherwise stable throughout the stay. His diagnosis/treatment plan was explained to him, all questions were answered. and patient verbalized understanding. He was then discharged home in a safe and stable manner. Vital Signs/Physical Exam: Temp Pulse Resp BP Pulse Ox 97.6 F 51 18 145/70 H 100 06/14/19 12:00 06/14/19 12:00 06/14/19 12:00 06/14/19 12:06/14/19 12:00 General: Alert, In no apparent distress, Oriented x3 HEENT: Atraumatic, PERRLA, EOMI Neck: Supple, JVD not distended Respiratory: Clear to auscultation bilaterally, Normal air movement Cardiovascular: Regular rate/rhythm, Normal S1 S2 Gastrointestinal: Normal bowel sounds, No tenderness Musculoskeletal: No tenderness Integumentary: No rashes Neurological: Normal speech, Normal tone, Normal affect Lymphatics: No axilla or inguinal lymphadenopathy Laboratory Data at Discharge: WBC 3.9 K/uL (4.3-10.9) L D 06/13/19 05:53 Hgb 13.3 g/dL (13.6-17.9) L 06/13/19 05:53 Hct 40.6 % (39.6-49.0) 06/13/19 05:53 Plt Count 168 K/uL (152-406) D 06/13/19 05:53 Sodium 143 mmol/L (136-145) 06/13/19 05:53 Potassium 4.0 mmol/L (3.5-5.1) 06/13/19 05:53 BUN 12 mg/dL (7-18) 06/13/19 05:53 Creatinine 0.91 mg/dL (0.55-1.3) 06/13/19 05:53 Glucose 82 mg/dL (74-106) 06/13/19 05:53 Magnesium 2.2 mg/dL (1.8-2.4) 06/13/19 05:53 Total Bilirubin 1.1 mg/dL (0.2-1.0) H 06/12/19 00:05 AST 51 U/L (15-37) H 06/12/19 00:05 ALT 36 U/L (12-78) 06/12/19 00:05 Alkaline Phosphatase 90 U/L (45-117) 06/12/19 00:05 Lipase 65 U/L (73-393) L 06/12/19 00:05 Home Medications: NK [No Home Meds] 06/12/19 Patient Discharge Instructions: Please follow up with the primary care physician in 2-3 days. Please follow up with Gastroenterology. Information has been provided to you. Please follow up with Dr. Syed. Information provided to you. Please return to the emergency room for worsening symptoms. Diet: Soft, as tolerated Activity: Ad amanda Followup: Anthony Syed MD [ACTIVE - CAN ADMIT] - 1-2 Weeks Kapil Calle MD [ASSOCIATE-ACTIVE - CAN ADMIT] - 1 Week Wanedr Armenta MD [Primary Care Provider] - 2-3 Days Time spent managing pt's care (in minutes): 55
== END 2019-06-14 14:50 | disposition home or self-care (01) | DRG 390 ==
LOC: ER 22:04 → ERHOLD 06-12 02:47 → 2ND 06-12 03:04
PROVIDERS: ADMIT Internal Medicine; ATTEND Internal Medicine
DX: K56.50 Intestinal adhesions [bands], unspecified as to partial versus complete obstruction (principal); D72.0 Genetic anomalies of leukocytes; Z98.890 Other specified postprocedural states; R73.9 Hyperglycemia, unspecified
CPT/HCPCS: 36415; 74022; 74177; 80048; 80076; 81003; 83690; 83735; 85025; 94760; 96361; 96374; 96375; 99285; J2405; J2550; J7030; Q9967